=== PATIENT | female | born 2000 ===

== ENCOUNTER 2020-09-07 16:15 | Emergency (ER) | payer SELFPAY ==
[~2020-09-07] VITALS: Ht 167.6 cm; Wt 75.0 kg
[2020-09-07] MEDS ORDERED: IBUPROFEN 400 MG TABLET PO ONE (17:45)
[2020-09-07 18:10] VITALS: BP 105/76
== END 2020-09-07 18:18 | disposition home or self-care (01) ==
LOC: EMS 16:17
DX: S06.0X0A Concussion without loss of consciousness, initial encounter (principal); F12.90 Cannabis use, unspecified, uncomplicated; F17.210 Nicotine dependence, cigarettes, uncomplicated; W18.39XA Other fall on same level, initial encounter; Y93.89 Activity, other specified; Y92.89 Other specified places as the place of occurrence of the external cause; Y99.8 Other external cause status
CPT/HCPCS: 93005